=== PATIENT | female | born 1955 | race Caucasian/White ===

== ENCOUNTER 2018-03-14 14:15 | Day surgery (SDC) | payer OTHER ==
[2018-03-14] MEDS ORDERED: BUPIVACAINE 0.5% (SDV) 30 ML INJ (16:42)
[2018-03-14] MEDS ORDERED: POLYMYXIN/BACITRACIN 1L IRRIG (16:42)
[2018-03-14] MEDS ORDERED: ROCURONIUM 50 MG INJ ×2 (17:06→19:37)
[2018-03-14] MEDS ORDERED: ROPIVACAINE 0.5 % 30 ML VIAL (17:06)
[2018-03-14] MEDS ORDERED: MIDAZOLAM 1 MG/ML 2 ML INJ (17:06)
[2018-03-14] MEDS ORDERED: PROPOFOL 20 ML (17:06)
[2018-03-14] MEDS ORDERED: ONDANSETRON 4 MG INJ (17:08)
[2018-03-14] MEDS ORDERED: METOCLOPRAMIDE 10 MG INJ (17:08)
[2018-03-14] MEDS ORDERED: FENTAnyl 50 MCG/ML VIAL (17:08)
[2018-03-14] MEDS ORDERED: CEFAZOLIN 1 GM INJ (17:49)
[2018-03-14] MEDS ORDERED: EPHEDrine SULFATE 50 MG/5 ML SYG (18:33)
[2018-03-14] MEDS ORDERED: HYDROmorphONE 2 MG/ML SYG (19:31)
[2018-03-14] MEDS ORDERED: GLYCOPYRROLATE 0.4 MG INJ (20:36)
[2018-03-14] MEDS ORDERED: NEOSTIGMINE 3 MG/3 ML SYRINGE (20:36)
[2018-03-14] MEDS ORDERED: ONDANSETRON 4 MG INJ IV (21:00)
[2018-03-14] MEDS ORDERED: HYDROmorphONE 1 MG/5 ML IV SYRINGE IV ×3 (21:00)
[2018-03-14] MEDS ORDERED: OXYCODONE/ACETAMINOPHEN (5/325) TAB PO ×2 (21:00)
[2018-03-15] MEDS ORDERED: ONDANSETRON 4 MG INJ IV
[2018-03-15] MEDS ORDERED: HYDROCODONE/APAP (5/325) TAB PO
[2018-03-15] MEDS ORDERED: ACETAMINOPHEN 325 MG TAB PO
[2018-03-15] MEDS ORDERED: NACL 0.9% 3 ML SYG IV
[2018-03-15] MEDS: HYDROCODONE/APAP (5/325) TAB PO ×2 (02:29→08:23)
[2018-03-15 05:58] LABS: ADD MAN DIFF? NO
[2018-03-15 06:00] LABS: WHITE BLOOD COUNT 9.5 10^3/ul (4.8-10.8)
[2018-03-15 06:00] LABS: BASOPHILS % 0.2 % (0.0-2.0); EOSINOPHILS % 0.1 % (0.0-7.0); HEMATOCRIT 33.2 % (37.0-47.0); HEMOGLOBIN 10.7 g/dl (12.0-16.0); LYMPHOCYTES # 0.9 10^3/ul (0.8-2.9); LYMPHOCYTES % 9.6 % (15.0-51.0); MEAN CORPUSCULAR HEMOGLOBIN 30.7 pg (29.0-33.0); MEAN CORPUSCULAR HGB CONC 32.2 g/dl (32.0-37.0); MEAN CORPUSCULAR VOLUME 95.1 fl (82.0-101.0); MONOCYTE # 0.9 10^3/ul (0.3-0.9); MONOCYTES % 8.9 % (0.0-11.0); NEUTROPHIL # 7.7 10^3/ul (1.6-7.5); NEUTROPHILS % 80.9 % (39.0-77.0); PLATELET COUNT 236 10^3/UL (140-415); RED BLOOD COUNT 3.49 10^6/ul (4.20-5.40); RED CELL DISTRIBUTION WIDTH 13.4 % (11.5-14.5)
[2018-03-15 06:16] LABS: HEMOGLOBIN A1C 5.9 % (0-5.9)
[2018-03-15 07:14] LABS: ALANINE AMINOTRANSFERASE 19 IU/L (13-69); ALBUMIN 3.3 g/dl (3.3-4.9); ALBUMIN/GLOBULIN RATIO 1.06; ALKALINE PHOSPHATASE 59 IU/L (42-121); ANION GAP 12 (8-16); ASPARTATE AMINO TRANSFERASE 24 IU/L (15-46); BILIRUBIN,INDIRECT 0.3 mg/dl (0-1.1); BILIRUBIN,TOTAL 0.3 mg/dl (0.2-1.3); BLOOD UREA NITROGEN 15 mg/dl (7-20); CALCIUM 8.8 mg/dl (8.4-10.2); CARBON DIOXIDE 24 mmol/L (21-31); CHLORIDE 110 mmol/L (97-110); CHOL/HDL RATIO 2.7 RATIO; CHOLESTEROL 145 mg/dl (100-200); GLUCOSE 91 mg/dl (70-220); HDL CHOLESTEROL 52 mg/dl (35-98); LDL CHOLESTEROL,CALCULATED 73 mg/dl; MAGNESIUM 1.9 mg/dl (1.7-2.5); POTASSIUM 3.9 mmol/L (3.5-5.1); SODIUM 142 mmol/L (135-144); TOTAL PROTEIN 6.4 g/dl (6.1-8.1); TRIGLYCERIDES 102 mg/dl (0-149)
[2018-03-15] MEDS: CALCIUM/VITAMIN D (500/200) TAB PO (08:23)
[2018-03-15] MEDS: LISINOPRIL 10 MG TAB PO (08:24)
[2018-03-15] MEDS: HYDROCODONE/APAP (10/325) TAB PO (12:31)
[2018-03-15] MEDS: OXYCODONE/ACETAMINOPHEN (5/325) TAB PO ×2 (15:03→19:26)
[2018-03-15] MEDS ORDERED: ATORVASTATIN 10 MG TAB PO (21:00)
== END 2018-03-15 20:00 | disposition home or self-care (01) ==
LOC: MS1 03-15 → SDS 14:15
DX: Q66.0 Congenital talipes equinovarus (principal); I10 Essential (primary) hypertension; E78.5 Hyperlipidemia, unspecified
CPT/HCPCS: 28715; 73610-RT; 73630; 80053; 80061; 83036; 83735; 84443; 85025; 97161